=== PATIENT | male | born 1980 | race Caucasian/White ===

== ENCOUNTER 2017-01-15 01:12 | Emergency (ER) | payer SELFPAY ==
[~2017-01-15] VITALS: Ht 157.5 cm; Wt 82.0 kg
[2017-01-15] MEDS ORDERED: ACETAMINOPHEN 325MG TABLET PO ONE (07:30)
[2017-01-15] MEDS ORDERED: BACITRACIN ZINC OINT UDPKT TOP ONE (08:00)
[2017-01-15 09:44] VITALS: BP 135/90
== END 2017-01-15 09:56 | disposition home or self-care (01) ==
LOC: ER 01:31
DX: S00.83XA Contusion of other part of head, initial encounter (principal); F10.129 Alcohol abuse with intoxication, unspecified; X58.XXXA Exposure to other specified factors, initial encounter; Y93.01 Activity, walking, marching and hiking; Y92.414 Local residential or business street as the place of occurrence of the external cause
CPT/HCPCS: 70450; 70486; 99284